=== PATIENT | female | born 1955 | race Caucasian/White ===

== ENCOUNTER 2016-09-05 10:03 | Emergency (ER) | payer BC ==
[2016-09-05 10:25] VITALS: BP 133/83
[2016-09-05] MEDS ORDERED: predniSONE 20 MG Tab PO ONE (10:33)
[2016-09-05] MEDS ORDERED: Famotidine 20 MG Tab PO ONE (10:34)
--- NOTE | 2016-09-05 10:42 | EDM.PDOC ---
ED HPI Allergic Reaction - General Chief Complaint: Allergic Reaction Stated Complaint: FACE SWOLLEN Time Seen by Provider: 09/05/16 10:21 Source of Information: Reports: Patient History Limitations: Reports: No limitations - History of Present Illness INITIAL COMMENTS - FREE TEXT/NARRATIVE: The patient presents with edema to her left wrist and the right side of her face. Last night at work she put some soap in a soap dispenser and it touched her left inner wrist. She had some itching after that. This morning when she woke up she had edema to her left inner wrist and the right side of her face. She has no shortness of breath. She has no chest pain, abdominal pain, nausea or vomiting. She also ate some oranges. She has never reacted to these things before. She has no new medications. Timing/Duration: Reports: Hour(s): Location, Skin: Reports: face, upper extremity, left (inner wrist) Characteristics: Reports: other (Just edema) Quality: Reports: Itching Severity: mild - Related Data Allergies/ADRs: Allergies Allergy/AdvReac Type Severity Reaction Status Date / Time No Known Allergies Allergy Verified 09/05/16 10:20 Home Meds: Home Meds Prednisone [IJD: predniSONE] 40 mg PO WITHBREAKFAST #10 tab 09/05/16 [Rx] Past Medical History Cardiovascular History: Reports: High cholesterol, Hypertension Endocrine/Metabolic History: Reports: Hypothyroidism Social & Family History - Tobacco Use Smoking Status *Q: Never Smoker Second Hand Smoke Exposure: No - Caffeine Use Caffeine Use: Reports: Coffee - Recreational Drug Use Recreational Drug Use: No ED ROS ALLERGIC REACTION - Review of Systems Review Of Systems: See Below Constitutional: Reports: no symptoms HEENT: Reports: Other (Edema to the right side of her face) Respiratory: Reports: No Symptoms Cardiovascular: Reports: No symptoms Endocrine: Reports: no symptoms GI/Abdominal: Reports: No symptoms : Reports: no symptoms Musculoskeletal: Reports: no symptoms Skin: Reports: other (Mild erythema and some edema to the ) ED EXAM GENERAL NO PERIP PULSE - Physical Exam Exam: See Below Exam Limited By: No limitations General Appearance: alert, no apparent distress Ears: normal external exam Nose: normal inspection Throat/Mouth: Normal inspection Head: other (Edema under the right eye and right face to include the right upper and lower lip) Neck: normal inspection Respiratory/Chest: no respiratory distress, lungs clear, normal breath sounds Cardiovascular: regular rate, rhythm, no edema, no murmur GI/Abdominal: soft, non tender, no organomegaly, no mass Back Exam: normal inspection Extremities: normal inspection Course - Vital Signs Last Recorded V/S: Last Vital Signs Temp 97.4 F 09/05/16 10:24 Pulse 66 09/05/16 10:24 Resp 18 09/05/16 10:24 BP 133/83 09/05/16 10:24 Pulse Ox 95 09/05/16 10:24 - Orders/Labs/Meds Orders: Active Orders 24 hr Category Date Time Status Famotidine [Pepcid] Med 09/05/16 10:34 Once 20 mg PO ONETIME ONE predniSONE Med 09/05/16 10:33 Once 40 mg PO ONETIME ONE - Re-Assessments/Exams Free Text/Narrative Re-Assessment/Exam: 09/05/16 10:44 I ordered some prednisone and pepcid. I will sent a prescription to her pharmacy. Departure - Departure Time of Disposition: 10:45 Disposition: Home, Self-Care 01 Condition: good Clinical Impression: Allergic reaction Qualifiers: Encounter type: initial encounter Qualified Code(s): T78.40XA - Allergy, unspecified, initial encounter Prescriptions: Prednisone [IJD: predniSONE] 40 mg PO WITHBREAKFAST #10 tab Referrals: Nikolai Ventura MD [Primary Care Provider] - Forms: ED Department Discharge Additional Instructions: Take the prednisone daily, pepcid 20mg daily for 1 week and benadryl 50mg every 6 hours as needed for a rash or swelling. Please return if you are worse. - My Orders Last 24 Hours: My Active Orders 09/05/16 10:33 predniSONE 40 mg PO ONETIME ONE 09/05/16 10:34 Famotidine [Pepcid] 20 mg PO ONETIME ONE - Assessment/Plan Last 24 Hours: My Active Orders 09/05/16 10:33 predniSONE 40 mg PO ONETIME ONE 09/05/16 10:34 Famotidine [Pepcid] 20 mg PO ONETIME ONE
== END 2016-09-05 11:05 | disposition home or self-care (01) ==
LOC: JD.ED 10:03
DX: T78.40XA Allergy, unspecified, initial encounter (principal); E78.00 Pure hypercholesterolemia, unspecified; I10 Essential (primary) hypertension; E03.9 Hypothyroidism, unspecified
CPT/HCPCS: 99283; A9270

== ENCOUNTER 2016-09-11 23:00 | Emergency (ER) | payer BC ==
[2016-09-11 23:10] VITALS: BP 131/84
[2016-09-11] MEDS ORDERED: predniSONE 20 MG Tab PO ONE (23:29)
--- NOTE | 2016-09-11 23:36 | EDM.PDOC ---
ED HPI Allergic Reaction - General Chief Complaint: Allergic Reaction Stated Complaint: ALLERGIC REACTION Time Seen by Provider: 09/11/16 23:29 Source of Information: Reports: Patient History Limitations: Reports: No limitations - History of Present Illness INITIAL COMMENTS - FREE TEXT/NARRATIVE: 7-year-old female presents the ED with acute onset of swelling of her left upper lip a bit at the corner of her mouth on the left side and then the facial cheek approximately 2-1/2 inches from the lip. The buccal mucosa is thickened on the inner aspect as well. Lip is a 3 times more thickened than normal. This represents an atypical form of angioedema. Patient was concerned that it was related to chemicals in the workplace and it splashed onto her skin she been using them for many months or years without any issues. Interestingly she has similar event about a week ago treated with a five-day course of prednisone which she finished yesterday. She states it took a good 3 days for the swelling of her right teto-face to go down. On October last check she is on lisinopril hydrochlorothiazide and I believe it's the culprit. This medicine will be discontinued and replaced with amlodipine 5 mg tablets with hydrochlorothiazide 25 mg once daily. She'll follow up with Dr. Cooper for blood pressure in 2 weeks ' time. I did give her dose of prednisone 30 mg in the ED and she'll use Benadryl 50 mg every 6 hours when necessary for swelling although these medicines rarely help this type of inflammation. Time fixes it. She will return of course if she develops any problems of the tongue floor of mouth etc. Symptom Onset Date: 09/11/16 Symptom Onset Time: 21:30 Timing/Duration: Reports: Hour(s):, Sudden onset Location, Skin: Reports: face (Left upper lip left lower lip corner of mouth and then facial cheek on the left side) Characteristics: Reports: other (Erythematous and thickened tissue.) Associated features: Reports: warmth, swelling, inflammation. Denies: tenderness, induration, scaling, lymphangitis Severity: moderate Known identified source: no When: prior to symptom onset (Happened about a week ago in the right side of her face.) Place of Occurrence: work Sick Contact: no Associated Symptoms: Denies: confusion, headaches, seizure, shortness of breath , syncope, weakness, chest pain, cough, sputum, diaphoresis, malaise, loss of appetite, nausea/vomiting Similar symptoms previously: yes Improves with: Reports: None Worsens with: Reports: None Place of Occurrence: Reports: work Suspected Etiology: Reports: unknown Recent Medical Care: yes Treatments [employer] E[employer] HELPER: Reports: Other (see below) - Related Data Allergies/ADRs: Allergies Allergy/AdvReac Type Severity Reaction Status Date / Time No Known Allergies Allergy Verified 09/05/16 10:20 Home Meds: Home Meds Prednisone [IJD: predniSONE] 40 mg PO WITHBREAKFAST #10 tab 09/05/16 [Rx] Hydrochlorothiazide 25 mg PO DAILY #30 tablet 09/11/16 [Rx] Prednisone [IMW: predniSONE] 20 mg PO BID #6 tab 09/11/16 [Rx] amLODIPine [Norvasc] 5 mg PO DAILY #30 tablet 09/11/16 [Rx] Past Medical History Cardiovascular History: Reports: High cholesterol, Hypertension Endocrine/Metabolic History: Reports: Hypothyroidism Social & Family History - Family History Family Medical History: Noncontributory - Tobacco Use Smoking Status *Q: Never Smoker Second Hand Smoke Exposure: No - Caffeine Use Caffeine Use: Reports: Coffee - Recreational Drug Use Recreational Drug Use: No - Living Situation & Occupation Occupation: employed ED ROS ALLERGIC REACTION - Review of Systems Review Of Systems: See Below Constitutional: Denies: fever, chills, malaise, weakness, fatigue, weight loss HEENT: Reports: No symptoms Respiratory: Reports: No Symptoms Cardiovascular: Reports: No symptoms Endocrine: Reports: no symptoms GI/Abdominal: Reports: No symptoms : Reports: no symptoms Musculoskeletal: Reports: no symptoms Skin: Reports: no symptoms Neurological: Reports: No Symptoms Psychiatric: Reports: No symptoms ED EXAM GENERAL NO PERIP PULSE - Physical Exam Exam: See Below Exam Limited By: No limitations General Appearance: alert, WD/WN, mild distress Nose: normal inspection Throat/Mouth: Other (Patient has marked swelling to the midline of her left upper lip mildly to the left lower lip and marked swelling of the corner of her mouth on the left side at about 2-1/2 inches of the buccal mucosa. He is very thickened on palpation both from from inner to outer aspect about 3-4 times more than normal. The lip itself is about 3 times thicker than normal as well. Assessment his angioedema. There is no angioedema involving the tongue the uvula or the floor of the mouth.) Head: atraumatic, normocephalic Neck: normal inspection, supple, non-tender, full range of motion. No: lymphadenopathy (L), lymphadenopathy (R) Respiratory/Chest: no respiratory distress, lungs clear, normal breath sounds, no accessory muscle use Cardiovascular: normal peripheral pulses, regular rate, rhythm, no gallop, no murmur Extremities: normal inspection, normal range of motion, non-tender, no pedal edema, normal capillary refill Neurological: alert, oriented, CN II-XII intact, normal cognition, normal gait Course - Vital Signs Last Recorded V/S: Last Vital Signs Temp 36.2 C 09/11/16 23:06 Pulse 89 09/11/16 23:06 Resp 18 09/11/16 23:06 BP 131/84 09/11/16 23:06 Pulse Ox 96 09/11/16 23:06 - Orders/Labs/Meds Meds: Medications Discontinued Medications Generic Name Dose Route Start Last Admin Trade Name Freq PRN Reason Stop Dose Admin Prednisone 30 mg 09/11/16 23:29 09/11/16 23:47 Prednisone PO 09/11/16 23:30 30 mg ONETIME ONE Administration - Radiology Interpretation Free Text/Narrative:: 7-year-old female presents with rather sudden onset of acute swelling of the left upper lip the corner of her mouth in the buccal mucosa about 2-1/2 inches away from the corner of her lip. IE lower side of her face involving her chin and a bit of the left lower lip as well. The lip is about 3 times normal thickness the cheek is about 4 times normal thickness. This represents angioedema. This is not a contact dermatitis from chemicals in the workplace. Inspection of her oral review of her medication list shows she is on lisinopril hydrochlorothiazide for many years. She is similar type reaction the right teto- face a week ago but seemed to start up around her eye and then worked its way down to the corner of her mouth. That would be an atypical presentation. Still highly suspect lisinopril hydrochlorothiazide combination is the culprit. This is to be discontinued. Her lisinopril will be placed with amlodipine 5 mg daily and hydrochlorothiazide 25 mg tablet once daily 30 tablets each provided. She' ll follow up with Dr. Cooper in a week to 10 days time. I did give her prednisone 30 mg orally in the ED although it's unlikely to help much. She'll use Benadryl at home as needed for itch. Again a time usually fixes this is a [id number] hours to resolve sometimes longer. On further questioning at about 72 hours last time for the problem to resolve. Departure - Departure Time of Disposition: 23:30 Disposition: Home, Self-Care 01 Condition: fair Clinical Impression: Angioedema of lips Qualifiers: Encounter type: initial encounter Qualified Code(s): T78.3XXA - Angioneurotic edema, initial encounter Prescriptions: Hydrochlorothiazide 25 mg PO DAILY #30 tablet Prednisone [IMW: predniSONE] 20 mg PO BID #6 tab amLODIPine [Norvasc] 5 mg PO DAILY #30 tablet Instructions: Angioedema, [id number] Referrals: Nikolai Ventura MD [Primary Care Provider] - Forms: ED Department Discharge Additional Instructions: Evaluation in the emergency room today in regards to sudden onset of swelling and erythematous rash on the left upper lip left lower lip and left sided facial cheek. Type reaction occurred a week ago. Concerns for possible chemical exposure placed but highly likely to produce the amount of edema or swelling in his tissues that we identified. This is most likely an adverse effect of lisinopril pain medication you're using for blood pressure control. It is called angioedema. Therefore lisinopril hydrochlorothiazide tablet needs to be discontinued. It should be replaced with amlodipine 5 mg tablet with hydrochlorothiazide 25 mg tablet once daily for blood pressure control. May use prednisone 20 mg twice daily for the next 3 days reducing the swelling but typically the swelling goes away on its own starting about 36 hours from the time it started. Follow up with Dr. Ventura in 2 weeks' time for blood pressure review.
[2016-09-11] MEDS ORDERED: Acetaminophen/oxyCODONE 325-5 MG Tab ONE (23:55)
== END 2016-09-11 23:53 | disposition home or self-care (01) ==
LOC: JD.ED 23:00
DX: T78.3XXA Angioneurotic edema, initial encounter (principal); I10 Essential (primary) hypertension; E78.00 Pure hypercholesterolemia, unspecified; E03.9 Hypothyroidism, unspecified; Z79.899 Other long term (current) drug therapy
CPT/HCPCS: 99283; A9270

== ENCOUNTER 2016-10-21 09:34 | Emergency (ER) | payer BC ==
[2016-10-21 09:49] VITALS: BP 157/91
--- NOTE | 2016-10-21 10:12 | EDM.PDOC ---
ED HPI Allergic Reaction - General Chief Complaint: Allergic Reaction Stated Complaint: ALLERGIC RX Time Seen by Provider: 10/21/16 09:55 Source of Information: Reports: Patient History Limitations: Reports: No limitations - History of Present Illness INITIAL COMMENTS - FREE TEXT/NARRATIVE: 61-year-old female attends the ED with continued problems with allergies. Today she exhibits bilateral periorbital swelling and edema particular the right upper eyelid and then along the back with cystic areas of the nose with increased mucus production in her eyes. Mild nasal congestion as well. She reports intermittent hives this may last one or 2 days and then go away. He still suggested shows she has a allergens that she is taking internally to cause a systemic reaction. Reviewed that list only suggest that hydrochlorothiazide may be a culprit. She currently is not supposed to use any Benadryl or antihistamines or steroids as she is going for allergy testing in the next week. Symptom Onset Date: 10/20/16 (No orbital swelling and upper lip swelling and numbness started yesterday.) Timing/Duration: Reports: Hour(s):, Gradual onset, Waxing/waning Location, Skin: Reports: face Characteristics: Reports: patchy, urticarial, erythematous Associated features: Reports: warmth, tenderness Quality: Reports: Itching Severity: moderate Known identified source: possible/maybe (Possibly medications at this time strongly suspect hydrochlorothiazide.) Place of Occurrence: home Sick Contact: no Associated Symptoms: Reports: rash. Denies: confusion, headaches, seizure, shortness of breath, syncope, weakness, chest pain, cough, sputum, fever/chills , diaphoresis, malaise, loss of appetite, nausea/vomiting Improves with: Reports: Other (Benadryl used to help but she's can take it right now because she is going for allergy testing next week.) Worsens with: Reports: Other Place of Occurrence: Reports: home (Nothing she knows of seems to make it worse. ) Suspected Etiology: Reports: medication, food (Possibly food dyes.) Recent Medical Care: yes (Did see Dr. Ventura 2 weeks ago for a course of Medrol Dosepak to 2 allergic reaction.) - Related Data Allergies/ADRs: Allergies Allergy/AdvReac Type Severity Reaction Status Date / Time No Known Allergies Allergy Verified 10/21/16 09:44 Home Meds: Home Meds Prednisone [IJD: predniSONE] 40 mg PO WITHBREAKFAST #10 tab 09/05/16 [Rx] Prednisone [IMW: predniSONE] 20 mg PO BID #6 tab 09/11/16 [Rx] amLODIPine [Norvasc] 5 mg PO DAILY #30 tablet 09/11/16 [Rx] Furosemide 20 mg PO DAILY #30 tablet 10/21/16 [Rx] Hydrocortisone [Hydrocortisone 1% Crm] 30 gm TOP ASDIRECTED #1 tube 10/21/16 [Rx ] Past Medical History Cardiovascular History: Reports: High cholesterol, Hypertension Endocrine/Metabolic History: Reports: Hypothyroidism Social & Family History - Family History Family Medical History: Noncontributory - Tobacco Use Smoking Status *Q: Never Smoker Second Hand Smoke Exposure: No - Caffeine Use Caffeine Use: Reports: Coffee, Soda - Recreational Drug Use Recreational Drug Use: No - Living Situation & Occupation Occupation: employed ED ROS ALLERGIC REACTION - Review of Systems Review Of Systems: See Below Constitutional: Reports: malaise. Denies: fever, chills, weight loss HEENT: Reports: Other (Periorbital edema and swelling. Extremities is in her eyes a dose of vision intermittently.) Respiratory: Denies: Shortness of Breath, Wheezing, Pleuritic Chest Pain Cardiovascular: Reports: No symptoms Endocrine: Reports: no symptoms GI/Abdominal: Reports: No symptoms Musculoskeletal: Reports: back pain Skin: Reports: pruritis, rash, erythema, urticaria Neurological: Reports: No Symptoms Psychiatric: Reports: No symptoms Hematologic/Lymphatic: Reports: no symptoms Immunologic: Reports: no symptoms ED EXAM GENERAL NO PERIP PULSE - Physical Exam Exam: See Below Exam Limited By: No limitations General Appearance: alert, anxious, mild distress, other (She has marked periorbital swelling and edema of the upper eyelids worse on the right as compared to the left. Associated swelling of the duct the cystic area or medial canthi of both eyes. Extremity is noted in both eyes without infection. Upper lip is thickened and edematous it is as well. No hives or erythema appreciated on wrist restraints this time.) Eye Exam: bilateral eye: periorbital changes (Or orbital edema particular right upper eyelid.) Ears: normal TMs Nose: normal inspection, clear rhinorrhea Throat/Mouth: Normal inspection, Normal lips, Normal teeth, Normal oropharynx, Other Head: atraumatic, normocephalic Neck: normal inspection, supple, non-tender, full range of motion. No: lymphadenopathy (L), lymphadenopathy (R) Respiratory/Chest: no respiratory distress, lungs clear, normal breath sounds, no accessory muscle use Extremities: normal inspection, normal range of motion, non-tender, normal capillary refill Neurological: alert, oriented, CN II-XII intact, normal cognition Psychiatric: normal affect Skin Exam: Warm, Dry, Intact, Erythema, Other (Marked periorbital edema bilaterally right greater than left. Particular the upper eyelids. Swelling of the medial canthi of both eyes and dorsal nose. Swelling of the upper lip or thickening. Duodenal like symptoms.) Course - Vital Signs Last Recorded V/S: Last Vital Signs Temp 36.5 C 10/21/16 09:44 Pulse 66 10/21/16 09:44 Resp 16 10/21/16 09:44 BP 157/91 H 10/21/16 09:44 Pulse Ox 98 10/21/16 09:44 - Radiology Interpretation Free Text/Narrative:: 7-year-old female seen in the ED in regards to persistent symptoms of skin allergy with urticaria swelling erythema. Particular seems to involve the perioral area and luis-op ocular areas at this time. She has intermittent hives on other parts of her body as well. This suggests a systemic allergen in medication is still high on the list of suspect. Suspect hydrochlorothiazide her thiazide diuretic at this time. It is to be discontinued and I will replace with Lasix or furosemide 20 mg once daily. I did give her some hydrocortisone 1 % cream to apply to her facial dermatitis at this time as this shouldn't interfere with her allergy tests next week. Departure - Departure Time of Disposition: 10:08 Disposition: Home, Self-Care 01 Condition: fair Clinical Impression: Allergic reaction Qualifiers: Encounter type: subsequent encounter Qualified Code(s): T78.40XD - Allergy, unspecified, subsequent encounter Prescriptions: Furosemide 20 mg PO DAILY #30 tablet Hydrocortisone [Hydrocortisone 1% Crm] 30 gm TOP ASDIRECTED #1 tube Instructions: Allergies, [id number] Referrals: Nikolai Ventura MD [Primary Care Provider] - Forms: ED Department Discharge Additional Instructions: Evaluation in the emergency department today in regards to continuing problems with allergy problems in terms of swelling of the upper lips swelling now periorbitally around the upper eyelids particularly on the right side. Intermittent problems with hives. This certainly seems to be something that you' re taking internally tests causing systemic reaction. Suspect medication at this time his hydrochlorothiazide and it should be stopped. It should be replaced with furosemide 20 mg once daily. Followup with freight broker agent next week as planned. In the meantime may place hydrocortisone 1% cream on the rash on her face to reduce the swelling and itch. This should not interfere with the allergy tests being done next week Tuesday.
== END 2016-10-21 10:22 | disposition home or self-care (01) ==
LOC: JD.ED 09:34
DX: T78.40XD Allergy, unspecified, subsequent encounter (principal); I10 Essential (primary) hypertension; E78.00 Pure hypercholesterolemia, unspecified; E03.9 Hypothyroidism, unspecified; Z79.899 Other long term (current) drug therapy
CPT/HCPCS: 99283

== ENCOUNTER 2017-07-28 06:14 | Emergency (ER) | payer BC ==
[2017-07-28] MEDS ORDERED: EPINEPHrine 1 MG/ML SDV IM ONE (06:54)
[2017-07-28] MEDS ORDERED: predniSONE 20 MG Tab PO ONE (06:54)
[2017-07-28] MEDS ORDERED: Insulin Regular, Human 100 Units/ML 3 ML Vial SUBCUT ONE (07:02)
[2017-07-28] MEDS ORDERED: Famotidine 20 MG Tab PO ONE (07:09)
--- NOTE | 2017-07-28 07:14 | EDM.PDOC ---
ED HPI GENERAL MEDICAL PROBLEM - General Chief Complaint: Allergic Reaction Stated Complaint: allergic reaction Time Seen by Provider: 07/28/17 06:41 Source of Information: Reports: Patient, RN Notes Reviewed - History of Present Illness INITIAL COMMENTS - FREE TEXT/NARRATIVE: 62-year-old female comes in with allergic reaction. She states that she started with a hive type lesion on her left arm yesterday that has continued. She states she did have some swelling of her upper lip yesterday but then did go down later in the day. She then awakened early this morning about an hour and a half ago with noticeable swelling of her tongue. She did take Nadege at home about 30 minutes prior to arrival. She feels now that the swelling of her tongue has lessened from what it was an hour ago but still noticeably swollen. She did feel like swallowing was somewhat more difficult because of the swelling but has had no breathing difficulty. The hive on her left arm continues today very similar to what she had yesterday. She has been having difficulty with hives intermittently for about a year. States she also did have swelling of her tongue on one prior occasion. At that time she was on lisinopril. The lisinopril was stopped with no further difficulty until this morning. 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: Endocrine/Metabolic History: Reports: Diabetes, Type II Dermatologic History: Reports: Eczema - Past Surgical History Female Surgical History: Reports: Hysterectomy Social & Family History - Family History Family Medical History: Noncontributory - Tobacco Use Smoking Status *Q: Never Smoker Second Hand Smoke Exposure: Yes - Caffeine Use Caffeine Use: Reports: None - Recreational Drug Use Recreational Drug Use: No - Living Situation & Occupation Occupation: Employed ED ROS ALLERGIC REACTION - Review of Systems Review Of Systems: See Below Constitutional: Denies: Fever, Chills HEENT: Reports: Other (No other area of facial swelling). Denies: Rhinitis, Throat Pain Respiratory: Denies: Shortness of Breath, Wheezing Cardiovascular: Denies: Chest Pain GI/Abdominal: Denies: Nausea, Vomiting Musculoskeletal: Reports: No Symptoms Skin: Reports: Erythema (She does have 1 fairly large hive-type lesion of her left forearm) Neurological: Reports: No Symptoms ED EXAM GENERAL NO PERIP PULSE - Physical Exam Exam: See Below General Appearance: Alert, No Apparent Distress Eye Exam: Bilateral Eye: PERRL Throat/Mouth: Other (There is mild swelling of the tongue at this time, pharynx not inflamed or swollen) Head: No: Facial Swelling Neck: Supple, Full Range of Motion Respiratory/Chest: No Respiratory Distress, Lungs Clear, Normal Breath Sounds. No: Rhonchi, Wheezing Cardiovascular: Regular Rate, Rhythm Extremities: Normal Inspection, Normal Range of Motion Neurological: Alert, Oriented, No Motor/Sensory Deficits Skin Exam: Warm, Dry, Normal Color, Erythema (1 3 x 4 cm area of erythema left forearm) Course - Vital Signs Last Recorded V/S: Last Vital Signs Temp 97.1 F 07/28/17 06:21 Pulse 58 L 07/28/17 07:00 Resp 17 07/28/17 07:00 BP 108/57 L 07/28/17 07:00 Pulse Ox 96 07/28/17 07:00 - Orders/Labs/Meds Labs: Laboratory Tests 07/28/17 Range/Units 06:53 POC Glucose 335 H (80-115) mg/dL Meds: Medications Discontinued Medications Generic Name Dose Route Start Last Admin Trade Name Kevin PRN Reason Stop Dose Admin Epinephrine HCl 0.3 mg 07/28/17 06:54 07/28/17 07:08 Adrenalin IM 07/28/17 06:55 0.3 mg ONETIME ONE Administration Famotidine 20 mg 07/28/17 07:09 07/28/17 07:19 Pepcid PO 07/28/17 07:10 20 mg ONETIME ONE Administration Insulin Human Regular 8 unit 07/28/17 07:02 07/28/17 07:19 Humulin R SUBCUT 07/28/17 07:03 8 units ONETIME ONE Administration Protocol Prednisone 20 mg 07/28/17 06:54 07/28/17 07:08 Prednisone PO 07/28/17 06:55 20 mg ONETIME ONE Administration - Re-Assessments/Exams Free Text/Narrative Re-Assessment/Exam: 07/28/17 07:16 We did check a blood sugar, that did come back at 335. I've been informed that she is only taking her metformin once daily, has been advised to be taking it twice daily. The swelling of her tongue is improved from what it had been an hour ago at home. However due to continued residual swelling I am going to give 1 epinephrine injection and also will give a low-dose 20 mg prednisone orally. With her blood sugar 335 we'll give insulin 8 units subcutaneous. I've also ordered Pepcid 20 mg by mouth. Departure - Departure Time of Disposition: 07:55 Disposition: Home, Self-Care 01 Condition: Fair Clinical Impression: Allergic reaction Qualifiers: Encounter type: subsequent encounter Qualified Code(s): T78.40XD - Allergy, unspecified, subsequent encounter - Discharge Information Referrals: Nikolai Ventura MD [Primary Care Provider] - Forms: ED Department Discharge Additional Instructions: Continue Nadege 180 mg once daily for now, simplify diet and avoid all foods and snacks that would be at risk for allergic reaction including nuts, seafood, tomatoes, strawberries or food containing various dyes. Be sure to take your metformin 500 mg twice daily as prescribed. Follow-up clinic as needed. Return to ED if symptoms worsening in any way.
[2017-07-28 09:04] VITALS: BP 116/65
== END 2017-07-28 08:55 | disposition home or self-care (01) ==
LOC: JD.ED 06:14
DX: T78.40XA Allergy, unspecified, initial encounter (principal); I10 Essential (primary) hypertension; E78.00 Pure hypercholesterolemia, unspecified; E11.9 Type 2 diabetes mellitus without complications; Z79.84 Long term (current) use of oral hypoglycemic drugs
CPT/HCPCS: 82962; 96372; 99285; A9270; J0171; J1817; 99283; J1815

== ENCOUNTER 2019-10-11 06:57 | Emergency (ER) | payer BC ==
[2019-10-11 07:13] VITALS: BP 135/71; PULSE 69
--- NOTE | 2019-10-11 07:23 | EDM.PDOC ---
ED HPI GENERAL MEDICAL PROBLEM - General Chief Complaint: Allergic Reaction Stated Complaint: TONGUE SWELLING Time Seen by Provider: 10/11/19 07:15 - History of Present Illness INITIAL COMMENTS - FREE TEXT/NARRATIVE: 64-year-old female presents the emergency room with what appears to be an allergic type reaction. This started around 5 AM this morning. She noticed some tongue swelling left eye lid, the upper, was swelling as well. She is noted some hives developing as well. She is not on any new medications she thinks maybe it was related to some food she has not eaten in a while last night such as teriCloudian jerky. She does not have any breathing difficulties except her tongue is swollen. She is in no acute distress. - Related Data Allergies Allergy/AdvReac Type Severity Reaction Status Date / Time lisinopril Allergy Severe Swollen Verified 10/11/19 07:32 Tongue Home Meds: Home Meds amLODIPine [Norvasc] 5 mg PO DAILY #30 tablet 09/11/16 [Rx] Furosemide 20 mg PO DAILY #30 tablet 10/21/16 [Rx] Glimepiride [Amaryl] 2 mg PO DAILY 07/28/17 [History] metFORMIN [Glucophage] 500 mg PO BID 07/28/17 [History] Calcium Carbonate [Calcium] 600 mg PO BID 10/11/19 [History] Levothyroxine [Synthroid] 88 mcg PO DAILY 10/11/19 [History] Pravastatin [Pravachol] 20 mg PO DAILY 10/11/19 [History] predniSONE [Prednisone] 20 mg PO ASDIRECTED #10 tablet 10/11/19 [Rx] Past Medical History Cardiovascular History: Reports: High Cholesterol, Hypertension 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: Endocrine/Metabolic History: Reports: Diabetes, Type II Dermatologic History: Reports: Eczema - Past Surgical History Female Surgical History: Reports: Hysterectomy Social & Family History - Family History Family Medical History: Noncontributory - Caffeine Use Caffeine Use: Reports: None - Living Situation & Occupation Occupation: Employed ED ROS ALLERGIC REACTION - Review of Systems Review Of Systems: See Below Constitutional: Reports: No Symptoms HEENT: Reports: Other (Tongue swelling and eyelid swelling as stated above) Respiratory: Reports: No Symptoms Cardiovascular: Reports: No Symptoms GI/Abdominal: Reports: No Symptoms Skin: Reports: Other (Hives noted) Neurological: Reports: No Symptoms Psychiatric: Reports: No Symptoms ED EXAM GENERAL NO PERIP PULSE - Physical Exam Exam: See Below Exam Limited By: No Limitations General Appearance: Alert, No Apparent Distress Eye Exam: Bilateral Eye: Normal Inspection, Other (Left upper eyelid is swollen) Ears: Normal External Exam, Normal Canal, Hearing Grossly Normal, Normal TMs, Other (Dry flaky cerumen noted in both canals) Nose: Normal Inspection, Normal Mucosa, No Blood Throat/Mouth: Normal Teeth, Normal Gums, No Airway Compromise, Other (Tongue is moderately swollen) Head: Atraumatic, Normocephalic Neck: Normal Inspection, Supple, Non-Tender, Full Range of Motion. No: Lymphadenopathy (L), Lymphadenopathy (R) Respiratory/Chest: No Respiratory Distress, Lungs Clear, Normal Breath Sounds Cardiovascular: Regular Rate, Rhythm, No Edema, No Murmur Skin Exam: Other (She has hives noted on the upper extremities and on her back a little bit on her abdomen she has some itching areas over her knees and the top of her feet) Course - Vital Signs Last Recorded V/S: Last Vital Signs Temp 36.6 C 10/11/19 07:10 Pulse 69 10/11/19 07:10 Resp 18 10/11/19 07:10 BP 135/71 10/11/19 07:10 Pulse Ox 94 L 10/11/19 07:10 - Orders/Labs/Meds Meds: Medications Discontinued Medications Generic Name Dose Route Start Last Admin Trade Name Freq PRN Reason Stop Dose Admin Diphenhydramine HCl 25 mg 10/11/19 07:27 10/11/19 07:45 Benadryl IVPUSH 10/11/19 07:28 25 mg ONETIME ONE Administration Famotidine 40 mg 10/11/19 07:26 10/11/19 07:42 Pepcid IVPUSH 10/11/19 07:27 40 mg ONETIME ONE Administration Methylprednisolone Sodium Succinate 125 mg 10/11/19 07:27 10/11/19 07:47 Solu-Medrol IVPUSH 10/11/19 07:28 125 mg ONETIME ONE Administration - Re-Assessments/Exams Free Text/Narrative Re-Assessment/Exam: 10/11/19 08:02 Patient received Solu-Medrol 125 mg famotidine 40 mg and Benadryl 25 mg she believes she is improving at this time we will continue to watch for now. 10/11/19 09:19 She is doing much better at this time. And is fairly insistent on going home which is okay she has a sick to attend to, and who has appointments coming up. The swelling in her tongue is much better the fullness she felt in her throat is resolved. Her hives are improving the swelling above her left eye is much better not completely gone and her tongue looks significantly better not completely back to normal. Patient will be discharged with prednisone famotidine and as needed Benadryl. Departure - Departure Time of Disposition: Disposition: Home, Self-Care 01 Clinical Impression: Allergic reaction Qualifiers: Encounter type: subsequent encounter Qualified Code(s): T78.40XD - Allergy, unspecified, subsequent encounter - Discharge Information Referrals: Nikolai Ventura MD [Primary Care Provider] - Forms: ED Department Discharge Additional Instructions: Return to the emergency room with any questions problems or worsening symptoms. You have a prescription at [facility] for prednisone take 2 tablets every morning starting Tuesday morning. 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 In the future if your allergic rhinitis gets worse take 1 daily along with your Nadege. If you develop tongue swelling again take 2 and see if this helps. Have some Benadryl on hand take 1 tablet every 6 hours only if needed. Follow-up with your regular physician as needed. Consider getting allergy testing done. Sepsis Event Note - Evaluation Sepsis Screening Result: No Definite Risk - Focused Exam Vital Signs: Vital Signs Temp Pulse Resp BP Pulse Ox 10/11/19 07:10 36.6 C 69 18 135/71 94 L Date Exam was Performed: 10/11/19 Time Exam was Performed: 09:18
[2019-10-11] MEDS ORDERED: Famotidine 20 MG/2 ML SDV IVPUSH ONE (07:26)
[2019-10-11] MEDS ORDERED: diphenhydrAMINE 50 MG/ML SDV IVPUSH ONE (07:27)
[2019-10-11] MEDS ORDERED: methylPREDNISolone Sodium Succinate 125 MG/2 ML SDV IVPUSH ONE (07:27)
== END 2019-10-11 09:36 | disposition home or self-care (01) ==
LOC: JD.ED 06:57
DX: L50.0 Allergic urticaria (principal); E78.00 Pure hypercholesterolemia, unspecified; I10 Essential (primary) hypertension; E11.9 Type 2 diabetes mellitus without complications; Z79.899 Other long term (current) drug therapy; Z88.8 Allergy status to other drugs, medicaments and biological substances; Z79.84 Long term (current) use of oral hypoglycemic drugs
CPT/HCPCS: 96374; 96375; 99283; J1200; J2930; J3490

== ENCOUNTER 2021-03-11 21:10 | Emergency (ER) | payer BC ==
--- NOTE | 2021-03-11 21:35 | EDM.PDOC ---
ED HPI GENERAL MEDICAL PROBLEM - General Chief Complaint: ENT Problem Stated Complaint: NOSE BLEED Time Seen by Provider: 03/11/21 21:34 - History of Present Illness INITIAL COMMENTS - FREE TEXT/NARRATIVE: 5-year-old female presents the emergency room with a nosebleed. Patient states is been on and off for about the last week but today has been excessively worse. Now no matter what she tries she cannot get it to stop. She is tried this definitely rolled up toilet paper up her nose and this does not work and tries holding the bottom of her nose and this does not work. She says she is swallowing a lot of blood as well. Patient usually has fairly well- controlled blood pressure she is a diabetic she is not however on any anticoagulation. She has had the Covid vaccine. The patient has not taken her daily meds today because she has been really busy working around the house she is on a couple medications that could affect her blood pressure. - Related Data Allergies Allergy/AdvReac Type Severity Reaction Status Date / Time lisinopril Allergy Severe Swollen Verified 03/11/21 21:22 Tongue rosuvastatin [From Crestor] Allergy Severe Cannot Verified 03/11/21 21:22 Remember yun Allergy Severe Cannot Verified 03/11/21 21:22 Remember bandaid Allergy Severe Cannot Uncoded 03/11/21 21:22 Remember Home Meds: Home Meds amLODIPine [Norvasc] 5 mg PO DAILY #30 tablet 09/11/16 [Rx] Furosemide 20 mg PO DAILY #30 tablet 10/21/16 [Rx] Glimepiride [Amaryl] 2 mg PO DAILY 07/28/17 [History] metFORMIN [Glucophage] 500 mg PO BID 07/28/17 [History] Calcium Carbonate [Calcium] 600 mg PO BID 10/11/19 [History] Levothyroxine [Synthroid] 88 mcg PO DAILY 10/11/19 [History] Pravastatin [Pravachol] 20 mg PO DAILY 10/11/19 [History] predniSONE [Prednisone] 20 mg PO ASDIRECTED #10 tablet 10/11/19 [Rx] Past Medical History Cardiovascular History: Reports: High Cholesterol, Hypertension 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: Endocrine/Metabolic History: Reports: Diabetes, Type II Dermatologic History: Reports: Eczema - Infectious Disease History Infectious Disease History: Reports: Chicken Pox, Measles - Past Surgical History GI Surgical History: Reports: Other (See Below) Other GI Surgeries/Procedures: henrry lane Female Surgical History: Reports: Hysterectomy Social & Family History - Family History Family Medical History: No Pertinent Family History - Tobacco Use Tobacco Use Status *Q: Never Tobacco User Second Hand Smoke Exposure: No - Caffeine Use Caffeine Use: Reports: None - Recreational Drug Use Recreational Drug Use: No - Living Situation & Occupation Occupation: Employed ED ROS ENT - Review of Systems Review Of Systems: See Below Constitutional: Reports: No Symptoms HEENT: Reports: Nosebleed Respiratory: Reports: No Symptoms Cardiovascular: Reports: No Symptoms GI/Abdominal: Reports: No Symptoms Musculoskeletal: Reports: No Symptoms ED EXAM, ENT - Physical Exam Exam: See Below Exam Limited By: No Limitations General Appearance: Alert, Mild Distress (Bloody nose she is breathing mostly from the right side gets an occasional amount of blood from the left) Eye Exam: Bilateral Eye: Normal Inspection Ears: Normal External Exam, Normal Canal, Hearing Grossly Normal, Normal TMs Nose: Other (Heavy bleeding on the right side less bleeding down the left side) Mouth/Throat: Normal Inspection, Normal Gums, Normal Lips, Normal Oropharynx, Normal Teeth, Other (Blood draining down the posterior pharynx at times) Head: Atraumatic, Normocephalic Neck: Normal Inspection, Supple, Non-Tender, Full Range of Motion. No: Lymphadenopathy (L), Lymphadenopathy (R) Cardiovascular: Regular Rate, Rhythm, No Edema, No Murmur GI/Abdominal: Normal Bowel Sounds, Soft, Non-Tender Extremities: Normal Inspection ED ENT PROCEDURES - Epistaxis Procedure Indication: Epistaxis, Uncontrolled Recent anticoagulants/antiplatlets: No Uncontrolled HTN: No Recent septal/nasal surgery: No Site of bleeding: Right Nare, Left Nare, Anterior, Posterior Clearing of clots: Patient Blew Nose Anterior Packing: Nasal Tampon (5.5 Rhino Rocket to the right side this helped but then had increasing bleeding out of the left side of 5.5 Rhino Rocket was placed here did initially try in place a anterior posterior dual balloon catheter but the girth of this would not fit into her nose) Complications: No Course - Vital Signs Last Recorded V/S: Last Vital Signs Temp 36.1 C 03/11/21 21:19 Pulse 86 03/11/21 22:45 Resp 16 03/11/21 21:19 BP 156/85 H 03/11/21 22:45 Pulse Ox 93 L 03/11/21 21:19 - Orders/Labs/Meds Orders: Active Orders 24 hr Category Date Time Status Vital Signs [RC] Q5M Care 03/11/21 21:54 Active PATIENT RETYPE [BBK] Routine Lab 03/11/21 22:44 Ordered Labs: Laboratory Tests 03/11/21 03/11/21 03/11/21 Range/Units 22:06 22:06 22:06 WBC 10.04 (3.98-10.04) K/mm3 RBC 5.14 (3.98-5.22) M/mm3 Hgb 14.4 (11.2-15.7) gm/dl Hct 44.3 (34.1-44.9) % MCV 86.2 (79.4-94.8) fl MCH 28.0 (25.6-32.2) pg MCHC 32.5 (32.2-35.5) g/dl RDW Std Deviation 45.1 (36.4-46.3) fL Plt Count 289 (182-369) K/mm3 MPV 9.0 L (9.4-12.3) fl Neut % (Auto) 67.9 (34.0-71.1) % Lymph % (Auto) 23.4 (19.3-51.7) % [place] % (Auto) 7.7 (4.7-12.5) % Eos % (Auto) 0.7 (0.7-5.8) Baso % (Auto) 0.2 (0.1-1.2) % Neut # (Auto) 6.82 H (1.56-6.13) K/mm3 Lymph # (Auto) 2.35 (1.18-3.74) K/mm3 [place] # (Auto) 0.77 H (0.24-0.36) K/mm3 Eos # (Auto) 0.07 (0.04-0.36) K/mm3 Baso # (Auto) 0.02 (0.01-0.08) K/mm3 PT 10.7 (9.7-12.0) SECONDS INR 0.96 APTT 25.6 (21.7-31.4) SECONDS Sodium 140 (136-145) mEq/L Potassium 3.5 (3.5-5.1) mEq/L Chloride 102 (98-107) mEq/L Carbon Dioxide 26 (21-32) mEq/L Anion Gap 15.5 H (5-15) BUN 25 H (7-18) mg/dL Creatinine 0.9 (0.55-1.02) mg/dL Est Cr Clr Drug Dosing 45.36 mL/min Estimated GFR (MDRD) > 60 (>60) mL/min BUN/Creatinine Ratio 27.8 H (14-18) Glucose 223 H (70-99) mg/dL Calcium 8.8 (8.5-10.1) mg/dL Total Bilirubin 0.4 (0.2-1.0) mg/dL AST 15 (15-37) U/L ALT 21 (14-59) U/L Alkaline Phosphatase 99 (46-116) U/L Total Protein 7.7 (6.4-8.2) g/dl Albumin 3.5 (3.4-5.0) g/dl Globulin 4.2 gm/dL Albumin/Globulin Ratio 0.8 L (1-2) Blood Type Gel Antibody Screen 03/11/21 Range/Units 22:06 WBC (3.98-10.04) K/mm3 RBC (3.98-5.22) M/mm3 Hgb (11.2-15.7) gm/dl Hct (34.1-44.9) % MCV (79.4-94.8) fl MCH (25.6-32.2) pg MCHC (32.2-35.5) g/dl RDW Std Deviation (36.4-46.3) fL Plt Count (182-369) K/mm3 MPV (9.4-12.3) fl Neut % (Auto) (34.0-71.1) % Lymph % (Auto) (19.3-51.7) % [place] % (Auto) (4.7-12.5) % Eos % (Auto) (0.7-5.8) Baso % (Auto) (0.1-1.2) % Neut # (Auto) (1.56-6.13) K/mm3 Lymph # (Auto) (1.18-3.74) K/mm3 [place] # (Auto) (0.24-0.36) K/mm3 Eos # (Auto) (0.04-0.36) K/mm3 Baso # (Auto) (0.01-0.08) K/mm3 PT (9.7-12.0) SECONDS INR APTT (21.7-31.4) SECONDS Sodium (136-145) mEq/L Potassium (3.5-5.1) mEq/L Chloride (98-107) mEq/L Carbon Dioxide (21-32) mEq/L Anion Gap (5-15) BUN (7-18) mg/dL Creatinine (0.55-1.02) mg/dL Est Cr Clr Drug Dosing mL/min Estimated GFR (MDRD) (>60) mL/min BUN/Creatinine Ratio (14-18) Glucose (70-99) mg/dL Calcium (8.5-10.1) mg/dL Total Bilirubin (0.2-1.0) mg/dL AST (15-37) U/L ALT (14-59) U/L Alkaline Phosphatase (46-116) U/L Total Protein (6.4-8.2) g/dl Albumin (3.4-5.0) g/dl Globulin gm/dL Albumin/Globulin Ratio (1-2) Blood Type A POSITIVE Gel Antibody Screen Negative Meds: Medications Discontinued Medications Generic Name Dose Route Start Last Admin Trade Name Michaelq PRN Reason Stop Dose Admin Lorazepam 1 mg 03/11/21 23:32 Lorazepam 2 Mg/Ml Sdv IVPUSH 03/11/21 23:33 ONETIME ONE - Re-Assessments/Exams Free Text/Narrative Re-Assessment/Exam: 03/11/21 23:42 Patient has done well with the bilateral nose packing in. I just pulled 2 cc of air out of Rhino Rocket's to help with discomfort. Anticipating discharge very soon Departure - Departure Time of Disposition: 00:11 Disposition: Home, Self-Care 01 Clinical Impression: Epistaxis - Discharge Information Referrals: Nikolai Ventura MD [Primary Care Provider] - Forms: ED Department Discharge Additional Instructions: Return to the emergency room with any questions problems or worsening symptoms. Nasal packing to be removed on Tuesday. Return immediately if you develop any fevers or increasing pain in this area. Go straight home and take your daily medications controlling your blood pressure is critical to controlling nosebleeds. Follow-up with your regular healthcare provider this next week. Sepsis Event Note (ED) - Evaluation Sepsis Screening Result: No Definite Risk - Focused Exam Vital Signs: Vital Signs Temp Pulse Resp BP Pulse Ox 03/11/21 22:45 86 156/85 H 03/11/21 22:30 78 150/74 H 03/11/21 22:11 79 163/89 H 03/11/21 21:57 90 168/85 H 03/11/21 21:19 36.1 C 97 16 144/76 H 93 L - My Orders Last 24 Hours: My Active Orders 03/11/21 21:54 Vital Signs [RC] Q5M 03/11/21 22:44 PATIENT RETYPE [BBK] Routine - Assessment/Plan Last 24 Hours: My Active Orders 03/11/21 21:54 Vital Signs [RC] Q5M 03/11/21 22:44 PATIENT RETYPE [BBK] Routine
[2021-03-11 22:53] VITALS: BP 156/85; PULSE 86
[2021-03-11] MEDS ORDERED: LORazepam 2 MG/ML SDV IVPUSH ONE (23:32)
== END 2021-03-12 00:18 | disposition home or self-care (01) ==
LOC: JD.ED 21:10
DX: R04.0 Epistaxis (principal); E11.9 Type 2 diabetes mellitus without complications; I10 Essential (primary) hypertension; E78.00 Pure hypercholesterolemia, unspecified; Z79.84 Long term (current) use of oral hypoglycemic drugs; Z88.8 Allergy status to other drugs, medicaments and biological substances; Z91.048 Other nonmedicinal substance allergy status; Z79.899 Other long term (current) drug therapy
CPT/HCPCS: 30903; 36415; 80053; 85025; 85610; 85730; 86850; 86900; 86901; 99283-25

== ENCOUNTER 2021-03-16 11:17 | Emergency (ER) | payer BC ==
[2021-03-16 11:29] VITALS: BP 135/68; PULSE 76
--- NOTE | 2021-03-16 11:52 | EDM.PDOC ---
ED HPI GENERAL MEDICAL PROBLEM - General Chief Complaint: ENT Problem Stated Complaint: NOSE CAUTERIZATION REMOVAL Time Seen by Provider: 03/16/21 11:27 Source of Information: Reports: Patient, RN Notes Reviewed History Limitations: Reports: No Limitations - History of Present Illness INITIAL COMMENTS - FREE TEXT/NARRATIVE: Patient is a 65-year-old female who presents to the ER to have her nose packing removal taken out. Patient was seen in this ER roughly 5 days ago, and had bilateral Rhino Rocket's placed for a nosebleed that would not stop. Patient's been using some Tylenol daily for pain management but has not developed any sort of fevers or chills, cough or shortness of breath. States that she has been having some issues with her teeth prior to this, she does see her primary care provider, Dr. Ventura tomorrow. Patient has no other concerns today. Headache Pain Score (Numeric/FACES): 4 - Related Data Allergies Allergy/AdvReac Type Severity Reaction Status Date / Time lisinopril Allergy Severe Swollen Verified 03/11/21 21:22 Tongue rosuvastatin [From Crestor] Allergy Severe Cannot Verified 03/11/21 21:22 Remember yun Allergy Severe Cannot Verified 03/11/21 21:22 Remember bandaid Allergy Severe Cannot Uncoded 03/11/21 21:22 Remember Home Meds: Home Meds amLODIPine [Norvasc] 5 mg PO DAILY #30 tablet 09/11/16 [Rx] Furosemide 20 mg PO DAILY #30 tablet 10/21/16 [Rx] metFORMIN [Glucophage] 500 mg PO BID 07/28/17 [History] Calcium Carbonate [Calcium] 600 mg PO BID 10/11/19 [History] Levothyroxine [Synthroid] 88 mcg PO DAILY 10/11/19 [History] Pravastatin [Pravachol] 20 mg PO DAILY 10/11/19 [History] Dulaglutide [Trulicity] 1 injection INJECT TH 03/16/21 [History] Insulin Degludec [Tresiba] 43 units INJECT DAILY 03/16/21 [History] Past Medical History - Past Health History Medical/Surgical History: Denies Medical/Surgical History Cardiovascular History: Reports: High Cholesterol, Hypertension 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: Endocrine/Metabolic History: Reports: Diabetes, Type II Dermatologic History: Reports: Eczema - Infectious Disease History Infectious Disease History: Reports: Chicken Pox, Measles - Past Surgical History GI Surgical History: Reports: Other (See Below) Other GI Surgeries/Procedures: tummy tuck Female Surgical History: Reports: Hysterectomy Social & Family History - Family History Family Medical History: No Pertinent Family History - Tobacco Use Tobacco Use Status *Q: Never Tobacco User - Caffeine Use Caffeine Use: Reports: Coffee, Energy Drinks, Soda - Recreational Drug Use Recreational Drug Use: No - Living Situation & Occupation Occupation: Employed ED ROS ENT - Review of Systems Review Of Systems: Comprehensive ROS is negative, except as noted in HPI. ED EXAM, ENT - Physical Exam Exam: See Below Exam Limited By: No Limitations General Appearance: Alert, WD/WN, No Apparent Distress Nose: Nasal Discharge (slight blood tinged mucus draining from bilateral nares), Dried Blood (at the entrance of the nares). No: Active Bleeding Respiratory/Chest: No Respiratory Distress, Lungs Clear, Normal Breath Sounds, No Accessory Muscle Use, Chest Non-Tender Cardiovascular: Normal Peripheral Pulses, Regular Rate, Rhythm, No Edema Extremities: Normal Inspection, Normal Capillary Refill Neurological: Alert, Oriented, Normal Cognition, No Motor/Sensory Deficits Psychiatric: Normal Affect, Normal Mood Skin: Warm, Dry, Intact, Normal Color, No Rash Course - Vital Signs Last Recorded V/S: Last Vital Signs Temp 98.3 F 03/16/21 11:28 Pulse 76 03/16/21 11:28 Resp 20 03/16/21 11:28 BP 135/68 03/16/21 11:28 Pulse Ox 98 03/16/21 11:28 - Re-Assessments/Exams Free Text/Narrative Re-Assessment/Exam: 03/16/21 11:53 Patient presents to the ER to have her bilateral nose packing taken out. This was removed successfully, there was just a slight bit of blood-tinged drainage noted, with some yellowish mucus attached to the end of the Rhino Rocket's. Patient states she is feeling a little bit better, she some of the facial pressure has ceased. We will go ahead and monitor her for a good half hour or longer to make sure that her nosebleed has in fact stopped. 03/16/21 12:30 Patient's been up at the bedside in her room, and she seems to be doing okay, she will follow up with her regular doctor tomorrow for ongoing management. Departure - Departure Time of Disposition: 12:30 Disposition: Home, Self-Care 01 Condition: Good Clinical Impression: Encounter for removal of nasal packing - Discharge Information *PRESCRIPTION DRUG MONITORING PROGRAM REVIEWED*: No *COPY OF PRESCRIPTION DRUG MONITORING REPORT IN PATIENT RICK: No Instructions: Nosebleed, Adult, [id number] Referrals: Nikolai Ventura MD [Primary Care Provider] - Forms: ED Department Discharge Additional Instructions: You were evaluated in the ER today to have your nasal packing removed. This was removed successfully, please try only to dab at your nose today, and try not to forcefully blow your nose for the next 24 hours if possible. You may try to use AYR saline nasal gel, on a Q-tip or swab, into the naris to provide moisturization. This can be bought at any retail store like [employer] or pharmacies. You may take 650 mg Tylenol every 6 hours as needed for ongoing pain management. Follow-up with your regular care provider, Dr. Ventura tomorrow for your previous appointment you had scheduled. Try to take it easy over the next 24 hours, and discussed with Dr. Ventura about returning to normal activities after your appointment. Do not hesitate to return to the ER at any time if symptoms change or worsen. Sepsis Event Note (ED) - Focused Exam Vital Signs: Vital Signs Temp Pulse Resp BP Pulse Ox 03/16/21 11:28 98.3 F 76 20 135/68 98
== END 2021-03-16 13:07 | disposition home or self-care (01) ==
LOC: JD.ED 11:17
DX: Z48.00 Encounter for change or removal of nonsurgical wound dressing (principal); E78.00 Pure hypercholesterolemia, unspecified; I10 Essential (primary) hypertension; E11.9 Type 2 diabetes mellitus without complications; Z79.4 Long term (current) use of insulin; Z79.899 Other long term (current) drug therapy; Z91.048 Other nonmedicinal substance allergy status; Z88.8 Allergy status to other drugs, medicaments and biological substances
CPT/HCPCS: 99282